=== PATIENT | female | born 1985 | race Caucasian/White ===

== ENCOUNTER 2017-03-06 00:15 | Inpatient (IN) | payer OTHER ==
[2017-03-06] VITALS (51 sets, daily range): BP systolic 77–147; BP diastolic 44–94; PULSE 93–141; TEMP 97.8–98.6
[~2017-03-06] VITALS: Ht 165.1 cm; Wt 88.6 kg
[2017-03-06] MEDS ORDERED: PRENATAL1 TA7 PO (00:36)
[2017-03-06] MEDS ORDERED: TYLENOL 500MG500 MG PO (00:37)
[2017-03-06 03:45] LABS: HEMATOCRIT 39.4 % (37.0-47.0); HEMOGLOBIN 13.3 g/dl (12.5-16.0); MEAN CELL VOLUME 90 fl (80.0-100.0); MEAN CORPUSCULAR HEMOGLOBIN 30 pg (27.0-31.0); MEAN CORPUSCULAR HGB CONC 34 g/dl (33.0-37.0); MEAN PLATELET VOLUME 9.6 fl (7.4-10.4); PLATELET COUNT 132 K/mm3 (130-400); RED BLOOD COUNT 4.38 M/mm3 (4.10-5.30); REDCELL DISTRIBUTION WIDTH-CV 14.3 % (11.5-14.5)
[2017-03-06 04:02] LABS: ANISOCYTOSIS 1+; BAND 3 % (0-10); LYMPHOCYTE 16 % (20.0-51.0); METAMYELOCYTE 1 % (0-0); NEUTROPHILS 76 % (42.0-75.2); POIKILOCYTOSIS 1+; ROULEAUX 1+
[2017-03-06 10:10] LABS: ALBUMIN 3.3 gm/dL (3.5-5.0); BILIRUBIN,TOTAL 0.3 mg/dL (0.0-1.0); CALCIUM 8.7 mg/dL (8.4-10.2); CREATININE, serum 0.52 mg/dL (0.52-1.25); POTASSIUM 3.8 mmol/L (3.4-5.0); TOTAL PROTEIN 6.4 gm/dL (6.4-8.2)
[2017-03-07 00:25] VITALS: BP 116/69; PULSE 98; TEMP 98.5
[2017-03-07 06:41] LABS: MEAN CELL VOLUME 92 fl (80.0-100.0); MEAN CORPUSCULAR HGB CONC 33 g/dl (33.0-37.0); MEAN PLATELET VOLUME 10.1 fl (7.4-10.4); PLATELET COUNT 131 K/mm3 (130-400); RED BLOOD COUNT 3.62 M/mm3 (4.10-5.30); REDCELL DISTRIBUTION WIDTH-CV 14.5 % (11.5-14.5)
[2017-03-07 06:51] LABS: HEMATOCRIT 33.3 % (37.0-47.0); HEMOGLOBIN 11.1 g/dl (12.5-16.0); MEAN CORPUSCULAR HEMOGLOBIN 31 pg (27.0-31.0)
[2017-03-07 07:30] VITALS: BP 110/86; PULSE 82; TEMP 98.1
[2017-03-07 08:49] LABS: BAND 12 % (0-10); LYMPHOCYTE 24 % (20.0-51.0); METAMYELOCYTE 1 % (0-0); NEUTROPHILS 57 % (42.0-75.2); PLATELET ESTIMATE NORMAL (NORMAL)
[2017-03-07] MEDS ORDERED: PERCOCET 325 MG1 TA2 PO (08:59)
[2017-03-07] MEDS ORDERED: IBU800 M1 PO (08:59)
[2017-03-07 16:00] VITALS: BP 118/68; PULSE 82; TEMP 98.2
[2017-03-07 22:50] VITALS: BP 107/74; PULSE 102; TEMP 98.5
[2017-03-08 07:05] VITALS: BP 106/68; PULSE 93; TEMP 97.8
[2017-03-08 16:40] VITALS: BP 124/83; PULSE 107; TEMP 98
[2017-03-08 20:45] VITALS: BP 118/75; PULSE 102; TEMP 98.3
[2017-03-09 09:24] VITALS: BP 125/90; PULSE 121; TEMP 97.8
== END 2017-03-09 12:50 | disposition home or self-care (01) | DRG 766 ==
LOC: LDRO 00:15 → LDR 00:31 → OB 00:31
PROVIDERS: Obstetrics & Gynecology; Student in an Organized Health Care Education/Training Program
PROC: 10D00Z1 Extraction of Products of Conception, Low, Open Approach (ICD-10-PCS; principal; 2017-03-06)
DX: O76 Abnormality in fetal heart rate and rhythm complicating labor and delivery (principal); O75.89 Other specified complications of labor and delivery; Z3A.39 39 weeks gestation of pregnancy; Z37.0 Single live birth
CPT/HCPCS: J0690; J1885; J2175; J2210; J2270; J2370; J2400; J2405; J2590; J3010; J7120

== ENCOUNTER → 2020-09-18 | Outpatient (CLI) | payer OTHER ==
[~2020-09-18] MED LIST: IBU800 M1 PO; LEXAPRO 10MG10 MG PO; PERCOCET 325 MG1 TA2 PO; PRENATAL1 TA7 PO; TYLENOL 500MG500 MG PO; ZOFRAN ODT4 MG PO
== END ==
LOC: DIA.ED 09:25
DX: O24.419 Gestational diabetes mellitus in pregnancy, unspecified control (principal)
CPT/HCPCS: G0108

== ENCOUNTER → 2020-09-25 | Outpatient (CLI) | payer OTHER | LOC: DIA.ED 08:00 | DX: O24.419 Gestational diabetes mellitus in pregnancy, unspecified control (principal) | CPT/HCPCS: G0108 ==

== ENCOUNTER 2020-11-21 15:19 | Inpatient (IN) | payer OTHER ==
[2020-11-21] VITALS (15 sets, daily range): BP systolic 90–116; BP diastolic 59–79; PULSE 101–140; TEMP 98–98.6
[~2020-11-21] VITALS: Ht 165.2 cm; Wt 92.7 kg
[~2020-11-21 15:19] MED LIST changes: -LEXAPRO 10MG10 MG PO; -ZOFRAN ODT4 MG PO
[2020-11-21] MEDS ORDERED: LEXAPRO 10MG10 MG PO (17:16)
[2020-11-21 17:40] LABS: BASO # 0.1 (0.0-0.2); BASO % 0.4 % (0.0-2.0); EOS # 0.1 (0.0-0.7); EOS % 0.6 % (0-4.0); GRAN # 8.4 (1.4-6.5); GRAN % 69.9 % (42.2-75.2); HEMATOCRIT 37.2 % (37.0-47.0); HEMOGLOBIN 12.5 g/dl (12.5-16.0); LYMPH # 2.5 (1.2-3.4); MEAN CELL VOLUME 86 fl (80.0-100.0); MEAN CORPUSCULAR HEMOGLOBIN 29 pg (27.0-31.0); MEAN CORPUSCULAR HGB CONC 34 g/dl (33.0-37.0); MEAN PLATELET VOLUME 10.1 fl (7.4-10.4); MONO # 0.9 (0.1-0.6); MONO % 7.1 % (1.7-9.3); PLATELET COUNT 147 K/mm3 (130-400); RED BLOOD COUNT 4.35 M/mm3 (4.10-5.30); REDCELL DISTRIBUTION WIDTH-CV 14.3 % (11.5-14.5)
[2020-11-22 02:45] VITALS: BP 111/72; PULSE 129; TEMP 97.7
--- NOTE | 2020-11-22 05:00 | NUR ---
Pt able to hold legs bilt. Tasha dc'd per orders. Pt assisted to edge of bed without difficulty. Denies dizziness or lightheadedness. Pt ambulatory to bathroom, standby assist. Pericare explained and completed. Abdominal binder placed.
[2020-11-22 07:29] VITALS: BP 124/70; PULSE 128; TEMP 98.1
--- NOTE | 2020-11-22 07:30 | NUR ---
Note pulse 128 per dynamap, verified by radial palpation. Patient reports her pulse is always high at rest, in 100s. Reports she saw a physician in for heart palpitations, as stated, her father has diagnosis of a-fib. Denies feeling like her pulse is racing at this time. Denies dizziness/lightheadedness/nausea. Jamila WEBB. Will report to physician upon rounds.
--- NOTE | 2020-11-22 10:05 | NUR ---
Initial visit; Parents thanked Director Equipment for offering congratulations and God's blessings for the of their daughter.
--- NOTE | 2020-11-22 10:50 | NUR ---
in for rounds. Aware of tachycardia this am. Labs ordered, explained to patient. Verbalizes understanding.
[2020-11-22 11:23] VITALS: BP 110/72; PULSE 117; TEMP 98.4
[2020-11-22 11:41] LABS: MEAN CELL VOLUME 87 fl (80.0-100.0); MEAN CORPUSCULAR HGB CONC 34 g/dl (33.0-37.0); MEAN PLATELET VOLUME 10.1 fl (7.4-10.4); PLATELET COUNT 137 K/mm3 (130-400); RED BLOOD COUNT 3.55 M/mm3 (4.10-5.30); REDCELL DISTRIBUTION WIDTH-CV 14.4 % (11.5-14.5)
[2020-11-22 11:42] LABS: HEMOGLOBIN 10.4 g/dl (12.5-16.0); MEAN CORPUSCULAR HEMOGLOBIN 29 pg (27.0-31.0)
--- NOTE | 2020-11-22 13:10 | NUR ---
Ambulating in hallways.
[2020-11-22 16:15] VITALS: BP 104/76; PULSE 115; TEMP 97.9
[2020-11-22 19:30] VITALS: BP 113/72; PULSE 118; TEMP 97.8
[2020-11-23 08:35] VITALS: BP 99/65; PULSE 86; TEMP 98.1
[2020-11-23] MEDS ORDERED: PERCOCET 325 MG1 TA2 PO (09:28)
[2020-11-23] MEDS ORDERED: IBU800 M1 PO (09:28)
[2020-11-23] MEDS ORDERED: ZOFRAN ODT4 MG PO (09:28)
[2020-11-23 12:00] VITALS: PULSE 96
[2020-11-23 16:08] VITALS: BP 99/66; PULSE 89; TEMP 98.2
[2020-11-23 20:00] VITALS: BP 113/72; PULSE 98; TEMP 98.1
[2020-11-24] VITALS: PULSE 97
[2020-11-24 06:45] VITALS: BP 109/77; PULSE 89; TEMP 98
== END 2020-11-24 10:15 | disposition home or self-care (01) | DRG 788 ==
LOC: OB 15:19
PROVIDERS: ADMIT Student in an Organized Health Care Education/Training Program
PROC: 10D00Z1 Extraction of Products of Conception, Low, Open Approach (ICD-10-PCS; principal; 2020-11-21)
DX: O34.211 Maternal care for low transverse scar from previous cesarean delivery (principal); O99.213 Obesity complicating pregnancy, third trimester; O99.343 Other mental disorders complicating pregnancy, third trimester; F41.9 Anxiety disorder, unspecified; O24.420 Gestational diabetes mellitus in childbirth, diet controlled; O99.892 Other specified diseases and conditions complicating childbirth; R00.0 Tachycardia, unspecified; O69.81X0 Labor and delivery complicated by cord around neck, without compression, not applicable or unspecified; Z37.0 Single live birth; Z3A.39 39 weeks gestation of pregnancy
CPT/HCPCS: J0690; J1100; J1885; J2405; J2590; J2765; J7120

== ENCOUNTER → 2020-11-21 | Outpatient (CLI) | payer OTHER | LOC: ZCOL.LAB 08:48 | DX: Z20.822 Contact with and (suspected) exposure to COVID-19 (principal) ==